=== PATIENT | male | born 1965 | race Caucasian/White ===

== ENCOUNTER 2017-09-25 18:01 | Inpatient (IN) | payer OTHER ==
[~2017-09-25] VITALS: Ht 188 cm; Wt 133.4 kg
[2017-09-25] VITALS (9 sets, daily range): BP systolic 136–171; BP diastolic 83–97
[2017-09-25 18:39] LABS: ABSOLUTE BASOPHILS 0.1 thou/uL (0.0-0.2); ABSOLUTE EOSINOPHILS 0.2 thou/uL (0.0-0.7); ABSOLUTE LYMPHOCYTES 6.7 thou/uL (0.8-5.3); ABSOLUTE MONOCYTES 1.4 thou/uL (0.0-1.2); ABSOLUTE NEUTROPHILS 6.4 thou/uL (1.6-8.1); BASOPHILS 0.7 %; HEMATOCRIT 44.9 % (42.0-52.0); HEMOGLOBIN 15.1 gm/dL (14.0-18.0); LYMPHOCYTES 45.5 %; MCHC 33.7 g/dL (28.0-37.0); MCV 88.9 fL (80.0-100.0); MONOCYTES 9.4 %; MPV 10.7 fl. (7.2-11.1); NUCLEATED RBCS 0 /100WBC; PLATELET COUNT* 247 thou/uL (150-400); POLYS 43.4 %; RBC 5.05 mil/uL (4.50-6.00); RDW-CV 13.7 % (10.5-14.5); WBC 14.8 thou/uL (4.0-11.0)
[2017-09-25 18:48] LABS: APTT 24.6 Seconds (25.0-31.3); PROTIME 9.7 Seconds (9.20-11.50)
[2017-09-25 19:01] LABS: ANION GAP 11 mmol/L (7-16); BUN 13 mg/dL (7-18); CALCIUM 8.6 mg/dL (8.5-10.1); CHLORIDE 103 mmol/L (98-107); CO2 26 mmol/L (21-32); CREATININE 1.1 mg/dL (0.6-1.3); GLUCOSE 147 mg/dL (70-99); SODIUM 140 mmol/L (136-145)
[2017-09-25 19:02] LABS: POTASSIUM 2.9 mmol/L (3.5-5.1)
[2017-09-25 19:12] LABS: ALBUMIN 3.8 g/dL (3.4-5.0); ALKALINE PHOSPHATASE 80 U/L (46-116); SGOT 25 U/L (15-37); SGPT 41 U/L (30-65); TOTAL BILIRUBIN 1.1 mg/dL (<0.1-1.0); TOTAL PROTEIN 7.8 g/dL (6.4-8.2); TROPONIN-I LEVEL <0.06 ng/mL (<0.06)
[2017-09-25] MEDS ORDERED: COZAAR 50 MG TA50 M2 PO (19:24)
[2017-09-25] MEDS ORDERED: METFORMIN HCL500 MG PO (19:24)
[2017-09-25] MEDS ORDERED: ASPIR 8181 MG PO (19:25)
[2017-09-25 19:33] LABS: URINE BILIRUBIN NEGATIVE (Negative); URINE BLOOD NEGATIVE (Negative); URINE CLARITY CLEAR; URINE COLOR YELLOW; URINE GLUCOSE-RANDOM NEGATIVE (Negative); URINE KETONES NEGATIVE (Negative); URINE LEUKOCYTES NEGATIVE (Negative); URINE NITRITE NEGATIVE (Negative); URINE PROTEIN NEGATIVE (Negative); URINE SPECIFIC GRAVITY >= 1.030 (1.005-1.030); URINE UROBILINOGEN 0.2 E.U./dl (0.2-1.0)
--- NOTE | 2017-09-25 22:03 | NUR ---
ADMITTED TO ICU BED 6 AT 2054. CODE STROKE, PER BOILERS AND PRESSURE VESSELS INSPECTOR TPA ADMINISTERED WITH COMPLETION TIME OF 1999. SIMULATION ANALYST PLACED, TRACING SR. BP 145/88, TO BE MAINTAINED PER PHYSICIAN PERAMETERS. NIH ZERO AT THIS TIME.
[2017-09-26] VITALS (16 sets, daily range): BP systolic 90–174; BP diastolic 52–96
[2017-09-26 04:44] LABS: ALBUMIN 3.7 g/dL (3.4-5.0); ALKALINE PHOSPHATASE 75 U/L (46-116); ANION GAP 11 mmol/L (7-16); BUN 10 mg/dL (7-18); CALCIUM 8.3 mg/dL (8.5-10.1); CHLORIDE 101 mmol/L (98-107); CHOLESTEROL 191 mg/dL (<200); CO2 28 mmol/L (21-32); GLUCOSE 122 mg/dL (70-99); HDL CHOLESTEROL 50 mg/dL (>40); LDL CHOLESTEROL 106 mg/dL (<100); SGOT 25 U/L (15-37); SGPT 39 U/L (30-65); SODIUM 140 mmol/L (136-145); TC:HDL 3.8 Ratio (Not establshd); TOTAL BILIRUBIN 1.2 mg/dL (<0.1-1.0); TRIGLYCERIDE 175 mg/dL (<150); VLDL 35 mg/dL (<40)
[2017-09-26 04:57] LABS: POTASSIUM 4.1 mmol/L (3.5-5.1)
[2017-09-26 04:58] LABS: SERUM ASSESSMENT CLEAR
--- NOTE | 2017-09-26 07:21 | NUR ---
NIH SCORE REMAINED ZERO THROUGHOUT THE NIGHT, ASSESSED AT INTERVALS INDICATED PER PROTOCOL. VSS. BP MAINTAINED WITH PERAMETERS SET BY STROKE PROTOCOL. PT HAS HAD NO RETURN OF NAUSEA SINCE ARRIVAL TO UNIT. BEDSIDE SWALLOW PERFORMED, NO EVIDENCE OF ASPIRATION. PT HAS TOLERATED WATER PO WITHOUT DIFFICULTY. VOIDS PER URINAL. O2 SAT REMAINS >92% ON 2L O2 PER NC. RN REMAINED 1:1 AT BEDSIDE. PT HAS DENIED CHEST PAIN, SOA, AND ANY OTHER DISCOMFORT. CALL LIGHT WITHIN REACH.
--- NOTE | 2017-09-26 09:44 | NUR ---
REHAB CONSULT ENTERED 09/25/17 AT 2128, RECEIVED THIS AM. PATIENT WITH STROKE AND CURRENTLY NIH SCORE OF 0. THERAPY EVALUATIONS WERE ORDERED, HOWEVER AWAITING COMPLETION AND RESULTS. DR. GARCIA AND RING SEWER ACKNOWLEDGE THIS CONSULT, WE WILL FOLLOW TO SEE HOW PATIENT DOES IN THERAPY TO DETERMINE IF QUALIFIES FOR INPATIENT REHAB STAY. THANK YOU FOR THIS CONSULT.
--- NOTE | 2017-09-26 11:00 | NUR ---
ASSUMED PT CARE 0730. NIH IN PROGRESS. SCORE OF 0. VSS. PT TOLERATING DIET. TRACING SR. NO S/S OF BLEEDING. PT VOIDING PER URINAL. WILL CONTINUE PLAN OF CARE.
--- NOTE | 2017-09-26 11:44 | NUR ---
Met patient and family this am and reviewed stroke program. Answered questions about BP management and compliance with medications. Pt reports no residual symptoms.
--- NOTE | 2017-09-26 17:14 | 2DMMODE ---
[place] [address] 2 D/M-MODE ECHOCARDIOGRAM Name: TOMEKA TO Room: [address] IN [facility]#: [id number] Admission: 09/25/17 Attend Phys: Mavis Bill, Discharge: Date of : 61 Date of Service: 09/26/17 1714 Report #: [id number] THIS REPORT FOR: //name// APPROVED REPORT Study performed: 09/26/2017 14:54:11 EXAM: Comprehensive 2D, Doppler, and color-flow Echocardiogram Patient Location: In-Patient Room #: [facility], 1928–1983 Status: routine BSA: 2.58 HR: 68 bpm BP: 128/78 mmHg Rhythm: NSR Other Information Study Quality: Good Indications CVA/TIA Echo Enhancing Agent Indication: Rule out Shunt Agent(s) / Amount(s) Used: Agitated Saline 10 cc 2D Dimensions LVEF(%): 65.48 (>50%) IVSd: 10.92 (7-11mm) LVOT Diam: 22.54 (18-24mm) LVDd: 54.29 mm PWd: 9.07 (7-11mm) Ascending Ao: 35.29 (22-36mm) LVDs: 34.57 (25-40mm) Aortic Root: 35.85 mm Sen's LVEF: 65.48 % Volumes Left Atrial Volume (Systole) LA ESV Index: 31.30 mL/m2 Aortic Valve AoV Peak Daniel.: 1.46 m/s AO Peak Gr.: 8.53 mmHg LVOT Max P.43 mmHg AO Mean Gr.: 4.59 mmHg LVOT Mean P.97 mmHg LVOT Max V: 1.54 m/s AO V2 VTI: 25.40 cm LVOT Mean V: 0.89 m/[place] [address] 2 D/M-MODE ECHOCARDIOGRAM Name: TOMEKA TO Room: [address] IN [facility].#: [id number] Admission: 09/25/17 Attend Phys: Mavis Bill, Discharge: Date of : 61 Date of Service: 09/26/17 1714 Report #: [id number] JOSTIN (VTI): 4.30 cm2 LVOT V1 VTI: 27.40 cm Mitral Valve E/A Ratio: 1.03 MV Decel. Time: 232.06 ms MV E Max Daniel.: 0.73 m/s MV PHT: 67.30 ms MVA (PHT): 3.27 cm2 TDI E/Lateral E': 5.62 E/Medial E': 6.64 Medial E' Daniel.: 0.11 m/s Lateral E' Daniel.: 0.13 m/s Pulmonary Valve PV Peak Daniel.: 1.04 m/s PV Peak Gr.: 4.34 mmHg Left Ventricle The left ventricle is normal size. There is normal LV segmental wall motion. There is normal left ventricular wall thickness. Left ventricular systolic function is normal. The left ventricular ejection fraction is within the normal range. LVEF is 60%. The left ventricular diastolic function is normal. Right Ventricle The right ventricle is normal size. The right ventricular systolic function is normal. Atria The left atrium size is normal. Interatrial septum is intact without evidence of ASD or PFO. The right atrium size is normal. Aortic Valve The aortic valve is normal in structure. No aortic regurgitation is present. There is no aortic valvular stenosis. Mitral Valve The mitral valve is normal in structure. Trace mitral regurgitation. No evidence of mitral valve stenosis. Tricuspid Valve The tricuspid valve is normal in structure. Trace tricuspid regurgitation. Pulmonic Valve The pulmonary valve is normal in structure. [place] [address] 2 D/M-MODE ECHOCARDIOGRAM Name: TOMEKA TO Room: [address] IN ..#: [id number] Admission: 09/25/17 Attend Phys: Mavis Bill, Discharge: Date of : 61 Date of Service: 09/26/17 1714 Report #: [id number] valvular regurgitation. Great Vessels The aortic root is normal in size. IVC is normal in size and collapses with >50% inspiration Pericardium There is no pericardial effusion. <Conclusion> There is normal left ventricular wall thickness. Left ventricular systolic function is normal. The left ventricular ejection fraction is within the normal range. LVEF is 60%. The left ventricular diastolic function is normal. The right ventricle is normal size. The left atrium size is normal. The aortic valve is normal in structure. The mitral valve is normal in structure. Trace mitral regurgitation. The tricuspid valve is normal in structure. IVC is normal in size and collapses with >50% inspiration There is no pericardial effusion. There is normal LV segmental wall motion. <ELECTRONICALLY SIGNED> By: Ervin Jones MD, FACC 09/26/171713 13 13 Ervin Jones MD, FACC /INF
--- NOTE | 2017-09-26 18:42 | NUR ---
VSS, ASSUMED CARE OF PT FROM ICU, PT IS A&O4, IS TRACING SR ON THE MONITOR, IS UP AD MATEUSZ ON RA AND DENIES ANY PAIN AT THIS TIME, PT NIH IS 0. PT FABIEN FALL PRECAUTIONS IN PLACE AND CALL LIGHT IN REACH, PT HAS FAMILY IN ROOM AT BEDSIDE, HIS GOAL IS TO HAVE NO S/S OF STROKE, HOURLY ROUNDS COMPLETED AND WILL FOLLOW WITH PLAN OF CARE,
[2017-09-27 02:06] LABS: GLYCOHEMOGLOBIN (HGB A1C) 6.1 % (4.8-5.6)
--- NOTE | 2017-09-27 03:25 | NUR ---
ASSUMED CARE OF PT AT 1900. PT IS ALERT AND ORIENTED. VSS. PERRLA. NO COMPLAINTS OF PAIN. NIH IS 0. PT IS IN SINUS RYTHM ON THE TELEMETRY. PT IS RESTING COMFORTABLY IN BED. RESPIRATIONS ARE EVEN AND NONLABORED. WILL CONTINUE TO MONITOR PT.
[2017-09-27 04:44] VITALS: BP 116/75
[2017-09-27 08:00] VITALS: BP 126/78
[2017-09-27 08:30] VITALS: BP 126/78
--- NOTE | 2017-09-27 10:03 | NUR ---
ASSUMED CARE OF PT AT 0730. PT RESTING IN BED WAITING FOR BREAKFAST. PT A&0X4. DENIES ANY PAIN OR SHORTNESS OF BREATH AT THIS TIME. PT IS READY TO GO HOME. NIH COMPLETED. PT SCORING ZERO. REFER TO CHARTING. PT TRACING SR ON THE HARNESS PLACER. ON RA SAT UPPER 90'S. BLOOD PRESSURE STABLE AT 126/78. PT UP AD MATEUSZ IN ROOM. PT GOAL FOR TODAY IS TO DISCHARGE HOME. AM ASSESSMENT CHARTED. MEDICATIONS PER AUG. PT REPOSITIONS SELF IN BED WITH REMINDERS. HOURLY ROUNDING OBSERVED. BED IN LOW POSITION. CALL LIGHT WITHIN REACH. WILL CONTINUE PLAN OF CARE.
[2017-09-27 10:52] VITALS: BP 126/78
--- NOTE | 2017-09-27 10:53 | NUR ---
SW met with pt to complete initial assessment, introduce self, and SW role. Pt lives at home with his . Pt has a son who is an EMT and pt said that his son helped him to get to the hospital to receive TPA soon enough. Pt independent, feels safe at home and does not express any dc needs. No other needs or concerns expressed. Pt to provide pt ride home.
--- NOTE | 2017-09-27 12:22 | NUR ---
DISCHARGE ORDERS RECEIVED. DISCHARGE INSTRUCTIONS, CARE NOTES AND FOLLOW UP APPTS GIVEN TO PT. PT COMMUNICATES UNDERSTANDING OF DISCHARGE TEACHING. IV AND CEMENT TRUCK DRIVER REMOVED. PT DISCHARGED WITH ALL BELONGINGS AND PAPERWORK VIA WHEELCHAIR WITH NURSING STAFF TO SPOUSE OWN PERSONAL VEHICLE.
--- NOTE | 2017-09-27 17:17 | EKG ---
[place] [address] ELECTROCARDIOGRAM REPORT Name: TOMEKA TO Room: [address] IN [facility]#: [id number] Admission: 09/25/17 Attend Phys: Mavis Bill MD Discharge: 09/27/17 Date of : 61 Report #: [id number] THIS REPORT FOR: //name// [facility] ED Test Date: 2017-09-25 Test Time: 20:10:39 Pat Name: TOMEKA TO Department: Room: [facility] Gender: Clay Stain Mixer: JIMI : 1965 Requested By: Freddy Sahu Order Number: [id number] MD: Gabriele Schwarz Measurements Intervals [place] Rate: 79 P: 21 MA: 177 QRS: 38 QRSD: 122 T: 46 QT: 410 QTc: 471 Interpretive Statements Sinus rhythm Possible left atrial enlargement IVCD, consider atypical RBBB No previous ECG available for comparison Electronically Signed On 09-27-2017 17:17:44 CDT by Gabriele Schwarz [email or web address] <ELECTRONICALLY SIGNED> By: Gabriele Schwarz MD, [facility] 09/27/17 1717 09 09 Gabriele Schwarz MD, FAC /EPI
--- NOTE | 2017-09-27 17:17 | EKG ---
[place] [address] ELECTROCARDIOGRAM REPORT Name: TOMEKA TO Room: [address] IN [facility]#: [id number] Admission: 09/25/17 Attend Phys: Mavis Bill MD Discharge: 09/27/17 Date of : 61 Report #: [id number] THIS REPORT FOR: //name// [facility] ED Test Date: 2017-09-25 Test Time: 18:02:23 Pat Name: TOMEKA TO Department: Room: [facility] Gender: Medical Assisting Instructor: Ilia HUMMEL : 1965 Requested By: Freddy Sahu Order Number: [id number] MD: Gabriele Schwarz Measurements Intervals [place] Rate: 87 P: 38 NE: 169 QRS: 55 QRSD: 133 T: 26 QT: 412 QTc: 496 Interpretive Statements Sinus rhythm Multiple ventricular premature complexes IVCD, consider atypical RBBB Baseline wander in lead(s) V2 No previous ECG available for comparison Electronically Signed On 09-27-2017 17:17:06 CDT by Gabriele Schwarz [email or web address] <ELECTRONICALLY SIGNED> By: Gabriele Schwarz MD, FACC 09/27/17 1717 180 180 Gabriele Schwarz MD, FAC /EPI
[2017-10-08 13:48] LABS: POC CA IONIZED 4.4 mg/dL (4.5-5.3); POC CREATININE 0.9 mg/dL (0.6-1.3); POC HEMOGLOBIN 15.3 g/dL (12.0-17.0); POC POTASSIUM 2.9 mmol/L (3.5-4.9)
== END 2017-09-27 12:30 | disposition home or self-care (01) | DRG 62 ==
LOC: M.ERS 18:01 → M.TBA-ER 19:26 → M.ICU 19:26 → M.2W 09-26 14:47
PROVIDERS: Emergency Medicine Emergency Medical Services; ADMIT Internal Medicine
PROC: 3E03317 Introduction of Other Thrombolytic into Peripheral Vein, Percutaneous Approach (ICD-10-PCS; principal; 2017-09-26)
PROC: B24BZZ4 Ultrasonography of Heart with Aorta, Transesophageal (ICD-10-PCS; principal; 2017-09-26)
DX: I63.9 Cerebral infarction, unspecified (principal); R65.10 Systemic inflammatory response syndrome (SIRS) of non-infectious origin without acute organ dysfunction; I10 Essential (primary) hypertension; E11.9 Type 2 diabetes mellitus without complications; I16.0 Hypertensive urgency; E87.6 Hypokalemia; I25.10 Atherosclerotic heart disease of native coronary artery without angina pectoris; Z87.891 Personal history of nicotine dependence; Z79.82 Long term (current) use of aspirin; Z79.84 Long term (current) use of oral hypoglycemic drugs; Z79.899 Other long term (current) drug therapy; Z91.14 Patient's other noncompliance with medication regimen